=== PATIENT | female | born 1965 | race Caucasian/White ===

== ENCOUNTER 2019-04-07 13:30 | Day surgery (SDC) | payer BC ==
[2019-04-05 11:47] VITALS: BMI 26.1
[~2019-04-07 13:30] MED LIST: DEXAMETHASONE SOD PHOSPHATE 10 MG/ML 1 ML VIAL IV ONE; HYDROmorphone 0.5 MG/0.5 ML SYRINGE IVP PRN; KETOROLAC 30 MG/ML 1 ML VIAL IVP SCH; LACTATED RINGERS 1,000 ML IV SCH; LIDOCAINE 1% 20 ML VIAL (10MG/ML) FOR IV START INTRADERMA PRN; METOCLOPRAMIDE 5 MG/ML 2 ML VIAL IVP PRN; ONDANSETRON 4 MG/2 ML VIAL IVP PRN; SCOPOLAMINE 1.5MG/72HR PATCH TRANSDERM ONE; ceFAZolin IN SWFI 2 GM/20 ML SYRINGE IVP ONE
[2019-04-07] MEDS ORDERED: MIDAZOLAM (PF) 2 MG/2 ML VIAL IVP ONE (13:51)
[2019-04-07] MEDS ORDERED: fentaNYL (PF) 50 MCG/ML 2 ML AMP IVP ONE (13:52)
--- NOTE | 2019-04-07 14:15 | P.ANPRN ---
Procedure Note - Anesthesia - Nerve Block Performed Left Axillary Single Time Out Performed: Yes Date of Procedure: 04/07/19 Location of Patient Procedure: PreOp Indication: Acute Post-Operative Pain Specifically requested for management of pain by DrJennifer: Vincent Hernandez Sedation Type: Sedate with meaningful contact maintained Position: Supine Catheter: None Needle Types: Pajunk Needle Gauge: 21 Technique: Ultrasound Injectate: 0.5% Ropivacaine (see comment for volume) (25) Blood Aspirated: No Pain Paresthesia on Injection Noted: No Resistance on Injection: Normal Events: Uneventful and Well Tolerated (20cc for Ax and 5cc for Musc cut)
[2019-04-07] MEDS ORDERED: fentaNYL (PF) 50 MCG/ML 2 ML AMP ONE (14:48)
[2019-04-07] MEDS ORDERED: PROPOFOL 10 MG/ML 20 ML VIAL IV ONE (14:48)
[2019-04-07] MEDS ORDERED: ROPIVACAINE 5 MG/ML 30 ML VIAL ONE (14:48)
[2019-04-07] MEDS ORDERED: LIDOCAINE 1% INJ 10MG/ML (20 ML MDV) ONE (14:48)
[2019-04-07] MEDS ORDERED: ePHEDrine SULFATE/0.9% NACL/PF 50 MG/5 ML SYRINGE IV ONE (14:48)
[2019-04-07] MEDS ORDERED: MIDAZOLAM 2 MG/2 ML VIAL ONE (14:48)
[2019-04-07] MEDS ORDERED: LACTATED RINGERS 1,000 ML IV ONE (15:26)
[2019-04-07] MEDS ORDERED: LIDOCAINE 1%-EPI 1:100,000 20 ML VIAL SQ ONE ×2 (15:37→16:45)
[2019-04-07] MEDS ORDERED: BUPIVACAINE (PF) 0.25% 30 ML VIAL SQ ONE ×2 (15:39→16:45)
[2019-04-07 17:16] VITALS: TEMP 96.9
[2019-04-07 17:51] VITALS: RESP 17
--- NOTE | 2019-04-07 18:00 | P.OP ---
Date of Procedure: 04/07/19 Preoperative Diagnosis: Displaced left distal radius fracture Postoperative Diagnosis: Displaced left distal radius fracture with intraarticular extension Procedure(s) Performed: Open reduction internal fixation of displaced left distal radius fracture (3 parts) Implants: Acumed [place]-2 locking volar distal radius plate, left narrow with locking and cortical screws Anesthesia: GETA, regional, local Surgeon: Vincent Hernandez Parasitologist #1: Francia Painting Estimated Blood Loss (ml): 5 Condition: stable Disposition: PACU Indications for Procedure: The patient is a 54-year-old female who experienced a mechanical fall which resulted in a displaced left distal radius fracture. Treatment options (and associated risks and benefits) were discussed in the office. Surgical treatment was recommended. In preop, the patient denied any additional questions or concerns and wished to proceed with surgery. Consent forms were signed. The operative site was confirmed and marked preoperatively. Description of Procedure: The patient was administered a regional nerve block by the anesthesia team then brought to the operating suite. She was positioned supine with the operative limb on an arm board. All bony prominences were well padded. Anesthesia was administered uneventfully. Prophylactic IV antibiotics were administered. A tourniquet was placed on the operative arm which was then prepped and draped in standard, sterile fashion. A timeout was performed which confirmed the patient, the operative side, the site and the procedure to be performed: all team members expressed agreement. The limb was exsanguinated with an Esmarch and the tourniquet was inflated. A standard volar FCR approach was utilized. The skin was sharply incised and the subcutaneous tissue were spread, coagulating superficial vessels as needed. The FCR sheath was incised and the tendon was mobilized. Blunt dissection was used and the pronator quadratus was identified. This was sharply released along its radial border and & elevated ulnarly. The fracture site was identified. The primary fracture line was transverse across the metaphysis. There was also a small, nondisplaced split extended into the lunate fossa. A manual reduction was performed but adequate hindu of radial height, inclination and volar tilt was not achieved. The fracture site was carefully opened and cleaned of hematoma and fibrous tissue. A [place] elevator was used to gently release the impacted dorsal fragments. The reduction maneuver was repeated and satisfactory initial alignment was confirmed with fluoroscopy. The plate was selected, based on the patients anatomy and fracture pattern, and was positioned on the volar radius. It was provisionally pinned in place with K- wires and its position was confirmed on imaging. A cortical screw was drilled, measured and inserted into the oblong hole of the shaft. Residual shortening of the radial column remained. A [place] was inserted into the fracture site and the combination of axial traction and ulnar deviation was applied. With the fracture held reduced, K wires were placed through the distal aspect of the plate to hold the reduction. Locking screws were then drilled, measured and inserted distally, confirming length and trajectory with fluoroscopy. The provisional K-wires were removed. An additional cortical screw was drilled and inserted to further secure the plate to the metaphysis. Final x-rays were obtained which revealed satisfactory reduction of the fracture. A 20-degree inclined lateral view was obtained to confirm extra- articular screw placement. The wrist was then ranged under live fluoroscopy - no motion of the fracture fragments or fixation construct was appreciated. The wound was thoroughly irrigated with normal saline. The pronator was loosely repaired with interrupted 3-0 Vicryl sutures. The tourniquet was released after 80 minutes at 250 mm Hg. Hemostasis was obtained with electrocautery with mild residual oozing from the fracture site. The incision was closed with a running 4-0 nylon suture. Local anesthetic with epinephrine was injected into the perioperative subcutaneous tissues for adjunctive postoperative pain control and hemostasis. A sterile dressing was applied followed by a resting volar splint. All sponge, needle and instrument counts were correct at the end of the case. The patient tolerated the procedure well and was taken to the recovery room in stable condition.
[2019-04-07 18:02] VITALS: BP 119/67; PULSE 97
--- NOTE | 2019-04-09 12:13 | FL ---
EXAMINATION TYPE: FL guidance operating room, XR wrist limited LT DATE OF EXAM: 04/07/2019 CLINICAL HISTORY: Fluoroscopic documentation during an open reduction internal fixation of the left d istal radius TECHNIQUE: Fluoroscopy. COMPARISON: None. FINDINGS: Fluoroscopic guidance was provided during procedure performed by Dr. Mcclelland. A total o f 27 seconds of fluoroscopic time was utilized during the procedure and 0 spot images was acquired. IMPRESSION: As Above.
== END 2019-04-07 16:30 | disposition home or self-care (01) ==
LOC: OR 13:30
PROVIDERS: ATTEND Orthopaedic Surgery
DX: S52.572A Other intraarticular fracture of lower end of left radius, initial encounter for closed fracture (principal); W18.30XA Fall on same level, unspecified, initial encounter; Z79.899 Other long term (current) drug therapy; Z87.891 Personal history of nicotine dependence; Z83.3 Family history of diabetes mellitus; K21.9 Gastro-esophageal reflux disease without esophagitis; K90.0 Celiac disease; Z79.891 Long term (current) use of opiate analgesic
CPT/HCPCS: 64417; 73100; 25609; C1713; J2250 ×2; J1100; J2405; J2001; J3010; J1885; J2795; J2704; J0690

== ENCOUNTER → 2020-12-04 | Outpatient (CLI) | payer BC ==
--- NOTE | 2020-12-17 11:54 | MM ---
Reason for exam: screening (asymptomatic). Last mammogram was performed 1 year and 8 months ago. History: Family history of breast cancer in paternal aunt at age 60 and breast cancer in paternal cousin at age 50. Excisional biopsy of the left breast, 2011. Stereotactic core biopsy of the right breast, 2009. Benign left US cyst aspiration of the left breast, March 05, 2006. Physical Findings: A clinical breast exam by your physician is recommended on an annual basis and results should be correlated with mammographic findings. MG Screening Mammo w CAD Bilateral CC and MLO view(s) were taken. Prior study comparison: April 12, 2019, mammogram, performed at [facility]. February 15, 2018, mammogram, performed at [facility]. The breast tissue is heterogeneously dense. This may lower the sensitivity of mammography. Finding: There is a typically benign 5 mm equal density (isodense), oval mass in the lower inner quadrant, anterior position of the right breast. Previous mammotome biopsy in the left breast. New finding since April 12, 2019 and February 15, 2018. ASSESSMENT: Incomplete: need additional imaging evaluation, BI-RAD 0 RECOMMENDATION: Ultrasound of the right breast. [facility] will attempt to contact patient to return for ultrasound.
== END | disposition home or self-care (01) ==
LOC: RADMAMWWP 15:16
PROVIDERS: ATTEND Obstetrics & Gynecology
DX: Z12.31 Encounter for screening mammogram for malignant neoplasm of breast (principal)
CPT/HCPCS: 77067

== ENCOUNTER → 2020-12-26 | Outpatient (CLI) | payer BC ==
--- NOTE | 2020-12-26 10:18 | USB ---
Reason for exam: additional evaluation requested from abnormal screening. History: Family history of breast cancer in paternal aunt at age 60 and breast cancer in paternal cousin at age 50. Excisional biopsy of the left breast, 2011. Stereotactic core biopsy of the right breast, 2009. Benign left US cyst aspiration of the left breast, March 05, 2006. Physical Findings: Nurse Summary: 1cm tender nodule right breast 11 o'clock (nurse mj). US Breast Workup Limited RT Right limited breast ultrasound including focal area of concern, retroareolar and axilla demonstrates a 0.2 x 0.3 x 0.1cm oval lesion too small to characterize at 4 o'clock, a 0.2 x 0.4 x 0.2cm oval lesion too small to characterize at 4 o'clock, linear duct ectasia at 9 o'clock, a 0.6 x 0.5 x 0.6cm oval, cystic lesion at 9 o'clock, a 0.5 x 0.5 x 0.3cm oval lymph node at 11 o'clock and a 0.5 x 0.6 x 0.2cm oval, cystic lesion at 12 o'clock. These results were verbally communicated with the patient and result sheet given to the patient on 12/26/20. ASSESSMENT: Benign, BI-RAD 2 RECOMMENDATION: Return to routine screening mammogram schedule for both breasts.
== END | disposition home or self-care (01) ==
LOC: RADUSWWP 07:43
PROVIDERS: ATTEND Obstetrics & Gynecology
DX: R92.8 Other abnormal and inconclusive findings on diagnostic imaging of breast (principal)